=== PATIENT | male | born 2000 | race Caucasian/White ===

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

== ENCOUNTER 2021-04-23 21:43 | Emergency (ER) | payer MEDICAID ==
[~2021-04-23] VITALS: Ht 180.3 cm; Wt 99.5 kg
[2021-04-24] MEDS ORDERED: HYDROcodone/acetaminophen 5mg/325mg tablet PO ONE (04:25)
[2021-04-24] MEDS ORDERED: cocaine 4% topical solution 4ml bottle MM ONE (04:50)
[2021-04-24] MEDS ORDERED: oxymetazoline 15 ML nasal spray NS ONE (04:50)
[2021-04-24 06:07] VITALS: BP 128/80
== END 2021-04-24 06:10 | disposition home or self-care (01) ==
LOC: ER 21:44
DX: S02.2XXA Fracture of nasal bones, initial encounter for closed fracture (principal); S00.83XA Contusion of other part of head, initial encounter; G43.909 Migraine, unspecified, not intractable, without status migrainosus; J45.909 Unspecified asthma, uncomplicated; Z72.89 Other problems related to lifestyle; Z88.2 Allergy status to sulfonamides; Z79.899 Other long term (current) drug therapy; W22.8XXA Striking against or struck by other objects, initial encounter; Y93.02 Activity, running; Y92.89 Other specified places as the place of occurrence of the external cause; Y99.8 Other external cause status
CPT/HCPCS: 70450; 70486; 99284

== ENCOUNTER 2021-08-11 12:39 | Emergency (ER) | payer MEDICAID ==
[~2021-08-11] VITALS: Ht 182.9 cm; Wt 101.0 kg
[2021-08-11 14:31] LABS: BASOPHILS % (AUTO) 0.5 % (0-1); EOSINOPHILS # (AUTO) 0.2 X10'3 (0-0.9); EOSINOPHILS % (AUTO) 5.1 % (0-6); HEMOGLOBIN 15.9 g/dl (14.0-17.9); LYMPHOCYTES # (AUTO) 1.3 X10'3 (1.1-4.8); LYMPHOCYTES % (AUTO) 31.3 % (21-51); MEAN CORPUSCULAR HEMOGLOBIN 28.3 PG (27.0-31.0); MEAN CORPUSCULAR HGB CONC 33.9 g/dL (33.0-36.5); MEAN CORPUSCULAR VOLUME 83.6 FL (78-98); MEAN PLATELET VOLUME 7.7 FL (7.4-10.4); MONOCYTES # (AUTO) 0.6 X10'3 (0-0.9); MONOCYTES % (AUTO) 13.9 % (2-12); NEUTROPHILS % (AUTO) 49.2 % (42-75); PLATELET COUNT 251 X10'3 (140-440); RED BLOOD COUNT 5.62 X10'6 (4.70-6.10); RED CELL DISTRIBUTION WIDTH 12.7 % (11.5-14.5); WHITE BLOOD COUNT 4.1 X10'3 (4.5-11.0)
[2021-08-11 14:46] LABS: ALANINE AMINOTRANSFERASE 51 U/L (12-78); ALBUMIN 4.2 G/DL (3.4-5.0); ALKALINE PHOSPHATASE 95 IU/L (20-180); ANION GAP 6 (8-16); ASPARTATE AMINO TRANSFERASE 25 U/L (10-37); BILIRUBIN,TOTAL 0.4 MG/DL (0.1-1.0); BLOOD UREA NITROGEN 14 MG/DL (7-18); BUN/CREATININE RATIO 13.1 (5.4-32.0); CALCIUM 8.9 MG/DL (8.5-10.1); CHLORIDE 102 MMOL/L (99-107); CREATININE 1.07 MG/DL (0.60-1.10); GLUCOSE 83 MG/DL (70-104); POTASSIUM 4.4 MMOL/L (3.5-5.1); SODIUM 139 MMOL/L (135-145); TOTAL CARBON DIOXIDE 30.7 MMOL/L (24-32); TOTAL PROTEIN 8.6 G/DL (6.4-8.2); eGFR 89 ML/MIN
[2021-08-11] MEDS ORDERED: ALBU6.7H9 INH (15:31)
[2021-08-11] MEDS ORDERED: NIRM1TAB PO (15:31)
[2021-08-11] MEDS ORDERED: PRED20TA PO (15:31)
[2021-08-11] MEDS ORDERED: BUDE180A INH (15:31)
[2021-08-11 15:33] VITALS: BP 120/75
== END 2021-08-11 15:35 | disposition home or self-care (01) ==
LOC: ER 12:39
DX: U07.1 COVID-19 (principal); J45.901 Unspecified asthma with (acute) exacerbation; G43.909 Migraine, unspecified, not intractable, without status migrainosus; Z72.89 Other problems related to lifestyle; Z88.2 Allergy status to sulfonamides; Z79.899 Other long term (current) drug therapy
CPT/HCPCS: 36415; 71045; 80053; 85025; 93005; 99285

== ENCOUNTER 2022-03-08 08:12 | Emergency (ER) | payer MEDICAID ==
[~2022-03-08] VITALS: Ht 185.4 cm; Wt 96.0 kg
[~2022-03-08 08:12] MED LIST changes: +ALBU6.7H14 INH; +BUDE180A INH; +NIRM1TAB PO
[2022-03-08 08:25] VITALS: BP 124/60
== END 2022-03-08 10:08 | disposition home or self-care (01) ==
LOC: ER 08:12
DX: R07.89 Other chest pain (principal); J45.909 Unspecified asthma, uncomplicated; G43.909 Migraine, unspecified, not intractable, without status migrainosus; Z88.2 Allergy status to sulfonamides
CPT/HCPCS: 71045; 93005; 99283

== ENCOUNTER 2022-09-13 10:36 | Emergency (ER) | payer MEDICAID ==
[~2022-09-13] VITALS: Ht 182.9 cm; Wt 91.0 kg
[2022-09-13 10:47] VITALS: BP 119/70
[2022-09-13 11:30] LABS: CLARITY,URINE CLEAR (Clear); COLOR,URINE YELLOW (Yellow); GLUCOSE, URINE NEGATIVE (Neg); KETONES,URINE NEGATIVE (Neg); LEUKOCYTE ESTERASE ,URINE NEGATIVE (Neg); NITRITES, URINE NEGATIVE (Neg); OCCULT BLOOD,URINE NEGATIVE (Neg); PROTEIN,URINE NEGATIVE (Neg); UROBILINOGEN,URINE 0.2 E.U/dL (0.2-1.0)
[2022-09-13 11:31] LABS: UA COLLECTION TYPE CLN CATCH MIDSTREAM
== END 2022-09-13 11:54 | disposition home or self-care (01) ==
LOC: ER 10:36
DX: R10.9 Unspecified abdominal pain (principal); G43.909 Migraine, unspecified, not intractable, without status migrainosus; J45.909 Unspecified asthma, uncomplicated; Z88.2 Allergy status to sulfonamides; Z79.899 Other long term (current) drug therapy
CPT/HCPCS: 81003; 99283